=== PATIENT | female | born 1955 | race Caucasian/White ===

== ENCOUNTER → 2016-07-08 | Outpatient (REF) | payer BC | LOC: M SFHCLERA 15:35 | PROVIDERS: ATTEND Nurse Practitioner Family | DX: R50.9 Fever, unspecified (principal) ==

== ENCOUNTER → 2017-04-13 | Outpatient (CLI) | payer BC ==
[2017-04-13 09:19] LABS: MEAN CORPUSCULAR HEMOGLOBIN 33.3 pg (27.0-33.0); MEAN CORPUSCULAR HGB CONC 35.7 g/dl (32.0-36.5); MEAN CORPUSCULAR VOLUME 93.1 fl (80.0-96.0); PLATELET COUNT, AUTOMATED 322 10^3/uL (150-450); RED CELL DISTRIBUTION WIDTH 12.4 % (11.5-14.5); WHITE BLOOD COUNT 5.6 10^3/uL (4.0-10.0)
[2017-04-13 10:11] LABS: ALBUMIN 4.1 GM/DL (3.2-5.2); ALBUMIN/GLOBULIN RATIO 1.08 (1.00-1.93); BILIRUBIN,TOTAL 0.8 MG/DL (0.2-1.0); CREATININE FOR GFR 1.07 MG/DL (0.55-1.02); GLOMERULAR FILTRATION RATE 55.9 (>51); POTASSIUM SERUM 3.8 MEQ/L (3.5-5.1); TOTAL PROTEIN 7.9 GM/DL (6.4-8.2)
== END ==
LOC: M LAB 08:41
PROVIDERS: ATTEND Physician Assistant
DX: I10 Essential (primary) hypertension (principal)

== ENCOUNTER → 2017-04-27 | Outpatient (CLI) | payer BC | LOC: M LRY 09:19 | DX: M54.5 Low back pain (principal); Q65.89 Other specified congenital deformities of hip; M16.11 Unilateral primary osteoarthritis, right hip | CPT/HCPCS: 72110 ==

== ENCOUNTER 2017-05-04 11:33 | Outpatient (RCR) | payer BC | END 2017-05-25 | LOC: M PT 05-09 15:13 | DX: Z51.89 Encounter for other specified aftercare (principal); M25.551 Pain in right hip; M54.5 Low back pain | CPT/HCPCS: 97110 ==

== ENCOUNTER 2017-06-01 15:13 | Outpatient (RCR) | payer BC | END 2017-06-22 | LOC: M PT 15:13 | DX: Z51.89 Encounter for other specified aftercare (principal); M25.551 Pain in right hip; M54.5 Low back pain | CPT/HCPCS: 97110 ==

== ENCOUNTER → 2017-07-28 | Outpatient (CLI) | payer BC | LOC: M RAD 17:29 | DX: D48.1 Neoplasm of uncertain behavior of connective and other soft tissue (principal) | CPT/HCPCS: 70486 ==

== ENCOUNTER → 2018-12-11 | Outpatient (CLI) | payer BC ==
[2018-12-11 10:19] LABS: HEMOGLOBIN A1c 6.3 %
[2018-12-11 10:49] LABS: ALBUMIN 4.1 GM/DL (3.2-5.2); BILIRUBIN,TOTAL 0.6 MG/DL (0.2-1.0); CALCIUM LEVEL 9.2 MG/DL (8.8-10.2); CHOLESTEROL RISK RATIO 6.078 (<5); CREATININE FOR GFR 1.2 MG/DL (0.55-1.30); GLOMERULAR FILTRATION RATE 48.6 (>45); POTASSIUM SERUM 3.9 MEQ/L (3.5-5.1); THYROID STIMULATING HORMONE 3.15 uIU/ML (0.358-3.740); TOTAL PROTEIN 7.4 GM/DL (6.4-8.2)
== END ==
LOC: M LAB 09:11
PROVIDERS: ATTEND Family Medicine
DX: I10 Essential (primary) hypertension (principal)

== ENCOUNTER → 2018-12-12 | Outpatient (CLI) | payer BC ==
--- NOTE | 2018-12-12 14:13 | REP ---
REASON: Pain. PRIORS: None. There is advanced asymmetric hip joint space narrowing with slight lateral subluxation. 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 There is subchondral sclerosis of both the acetabulum and the femoral head which may be slightly flattened superolaterally. Lucencies are seen in the subchondral femoral head and acetabulum consistent with degenerative cyst formation. IMPRESSION: Advanced chronic changes involving the right hip as described above. Electronically Signed by Ralph Luna DO 12/12/2018 03:35 P
== END ==
LOC: M RAD 11:27
PROVIDERS: ATTEND Family Medicine
DX: M17.11 Unilateral primary osteoarthritis, right knee (principal)